=== PATIENT | male | born 1965 | race Caucasian/White ===

== ENCOUNTER 2024-02-15 11:30 | Inpatient (IN) | payer OTHER ==
[2024-02-15 12:13] VITALS: BMI 21.9
[2024-02-15] MEDS ORDERED: DICYCLOMINE HCL 10 MG CAPSULE PO PRN (12:26)
[2024-02-15] MEDS ORDERED: guaiFENesin 600 MG TABLET.ER (FP) PO PRN (12:26)
[2024-02-15] MEDS ORDERED: diazePAM 5 MG TABLET PO PRN (12:26)
[2024-02-15] MEDS ORDERED: POLYETHYLENE GLYCOL (HEALTHYLAX) 3350 17 GM PACKET PO PRN (12:26)
[2024-02-15] MEDS ORDERED: BENZOCAINE/MENTHOL (CHLORASEPTIC ) LOZENGE MM PRN (12:26)
[2024-02-15] MEDS ORDERED: BENZONATATE 200 MG CAPSULE PO PRN (12:26)
[2024-02-15] MEDS ORDERED: NALOXONE (NARCAN) HCL 4 MG/0.1 ML SPRAY NS PRN (12:26)
[2024-02-15] MEDS ORDERED: MAGNESIUM HYDROX 2400MG/30ML ORAL SUSPENSION 30 ML CUP PO PRN (12:26)
[2024-02-15] MEDS ORDERED: ACETAMINOPHEN 325 MG TABLET (FP) PO PRN (12:26)
[2024-02-15] MEDS ORDERED: IBUPROFEN 400 MG TABLET (FP) PO PRN (12:26)
[2024-02-15] MEDS ORDERED: IBUPROFEN 600 MG TABLET (FP) PO PRN (12:26)
[2024-02-15] MEDS ORDERED: LOPERAMIDE HCL 2 MG CAPSULE PO PRN (12:26)
[2024-02-15] MEDS ORDERED: hydrOXYzine PAMOATE 25 MG CAPSULE (FP) PO PRN (12:26)
[2024-02-15] MEDS ORDERED: methaDONE HCL 10 MG TABLET (FOR DETOX USE ONLY) ONE (12:51)
[2024-02-15] MEDS: PRENATAL VITAMINS W/ FOLIC ACID TABLET (FP) PO SCH (13:00)
[2024-02-15] MEDS ORDERED: ACETAMINOPHEN PO PRN (13:00)
[2024-02-15] MEDS: methaDONE HCL 10 MG TABLET (FOR DETOX USE ONLY) PO ONE (13:00)
[2024-02-15] MEDS: NICOTINE 14 MG/24 HOURS TOPICAL PATCH TD SCH (13:01)
[2024-02-15] MEDS ORDERED: IBUPROFEN 600 MG TABLET (FP) PO ONE (13:21)
[2024-02-15] MEDS: methaDONE HCL 10 MG TABLET PO ONE (13:31)
[2024-02-15] MEDS: cloNIDine HCL 0.1 MG TABLET PO SCH (13:33)
[2024-02-15] MEDS: ACAMPROSATE CALCIUM 333 MG TABLET.DR PO SCH (13:33)
[2024-02-15] MEDS: diazePAM 5 MG TABLET PO SCH (17:40)
[2024-02-15] MEDS: [UNRECOGNIZED DRUG - OTHER] PO SCH (17:41)
[2024-02-15] MEDS: POTASSIUM CLAV PO SCH (17:41)
[2024-02-15] MEDS: AMOXICILLIN PO SCH (17:41)
[2024-02-15] MEDS: THIAMINE 100 MG TABLET PO SCH (22:41)
[2024-02-15] MEDS: MELATONIN 5 MG TABLETS PO SCH (22:42)
[2024-02-16] MEDS: methaDONE HCL 10 MG TABLET PO ONE ×2 (10:36→10:39)
[2024-02-16] MEDS: FLU VACCINE (FLULAVAL) PF 45 MCG/0.5 ML SYRINGE 2024-2025 IM ONE (12:08)
[2024-02-16 12:58] LABS: BLOOD UREA NITROGEN 24.8 mg/dL (7-18); CALCIUM 9.2 mg/dL (8.5-10.1)
[2024-02-16 13:02] LABS: BILIRUBIN,TOTAL 0.2 mg/dL (0.2-1); CREATININE 0.8 mg/dL (0.55-1.3)
[2024-02-16 13:03] LABS: TOT PROT 6.2 g/dl (6.4-8.2)
[2024-02-16 13:50] LABS: HIV INTERPRETATION NEGATIVE (NEGATIVE)
[2024-02-16 14:34] LABS: HEMOGLOBIN 11.5 GM/dL (11.7-16.9); MCH 30.6 pg (25.7-33.7); MCHC 32.7 g/dl (32.0-35.9); MEAN CELL VOLUME 93.5 fl (80-96); MEAN PLT VOLUME 7.8 fl (7.5-11.1); PLATELET COUNT 272 10^3/uL (134-434); RBC 3.74 M/mm3 (4.00-5.60); RDW 13.1 % (11.9-15.9); WHITE BLOOD COUNT 8.2 K/mm3 (4.0-10.0)
[2024-02-17] MEDS ORDERED: cloNIDine HCL 0.1 MG TABLET PO PRN
[2024-02-17] MEDS: diazePAM 5 MG TABLET PO SCH (05:42)
[2024-02-17] MEDS: methaDONE 40 MG, methaDONE 10 MG PO SCH (05:43)
[2024-02-17] MEDS ORDERED: methaDONE HCL 40 MG DISPERSABLE TABLET PO SCH (06:00)
[2024-02-17] MEDS: methaDONE HCL 10 MG TABLET PO ONE (09:26)
[2024-02-17] MEDS: METHOCARBAMOL 500 MG TABLET PO PRN (22:18)
[2024-02-18] MEDS: diazePAM 5 MG TABLET PO SCH (05:26)
[2024-02-18] MEDS: MAG HYDROX/AL HYDROX/SIMETH 30 ML UNIT-DOSE CUP PO PRN (09:25)
[2024-02-18] MEDS: methaDONE HCL 40 MG DISPERSABLE TABLET PO ONE (09:28)
[2024-02-18] MEDS: ONDANSETRON *ODT* 4 MG TABLET SL PRN (10:44)
[2024-02-18] MEDS: BISMUTH SUBSALICYLATE 262 MG/15 ML BTL PO PRN (10:45)
[2024-02-18] MEDS: NALOXONE (NYS OPIOID OVERDOSE PROGRAM) 4 MG/0.1 ML SPRAY NS SCH (12:02)
[2024-02-18 13:20] VITALS: BP 139/80; PULSE 89; RESP 17; TEMP 97.7
[2024-02-19] MEDS ORDERED: diazePAM 5 MG TABLET PO ONE (06:00)
[2024-02-19] MEDS ORDERED: methaDONE 40 MG, methaDONE 10 MG PO ONE (10:00)
[2024-02-20] MEDS ORDERED: methaDONE 40 MG, methaDONE 20 MG PO ONE (10:00)
== END 2024-02-18 12:35 | disposition home or self-care (01) | DRG 773 ==
LOC: YASAS 11:30 → Y6N 12:33
PROVIDERS: ADMIT Allergy & Immunology; ATTEND Surgery
PROC: HZ2ZZZZ Detoxification Services for Substance Abuse Treatment (ICD-10-PCS; principal; 2024-02-15)
DX: F11.23 Opioid dependence with withdrawal (principal); F10.230 Alcohol dependence with withdrawal, uncomplicated; F17.210 Nicotine dependence, cigarettes, uncomplicated; F31.9 Bipolar disorder, unspecified; F19.24 Other psychoactive substance dependence with psychoactive substance-induced mood disorder
CPT/HCPCS: 36415; 80053; 80305; 80307; 85027; 86780; 86803; 87389; 90656; 93005; 93010; G0008; Q0162

== ENCOUNTER 2024-04-22 11:32 | Inpatient (IN) | payer OTHER ==
[2024-04-22 12:04] VITALS: BMI 23.1
[2024-04-22] MEDS ORDERED: BISACODYL 5 MG TABLET.DR (FP) PO PRN (12:25)
[2024-04-22] MEDS ORDERED: DOCUSATE SODIUM 100 MG CAPSULE (FP) PO PRN (12:25)
[2024-04-22] MEDS ORDERED: IBUPROFEN 400 MG TABLET (FP) PO PRN (12:25)
[2024-04-22] MEDS ORDERED: BENZONATATE 200 MG CAPSULE PO PRN (12:25)
[2024-04-22] MEDS ORDERED: NICOTINE POLACRILEX 2 MG GUM BUC PRN (12:25)
[2024-04-22] MEDS ORDERED: LOPERAMIDE HCL 2 MG CAPSULE PO PRN (12:25)
[2024-04-22] MEDS ORDERED: NALOXONE (NARCAN) HCL 4 MG/0.1 ML SPRAY NS PRN (12:25)
[2024-04-22] MEDS ORDERED: NICOTINE POLACRILEX 2 MG LOZENGE BC PRN (12:25)
[2024-04-22] MEDS ORDERED: MAG HYDROX/AL HYDROX/SIMETH 30 ML UNIT-DOSE CUP PO PRN (12:25)
[2024-04-22] MEDS ORDERED: MAGNESIUM HYDROX 2400MG/30ML ORAL SUSPENSION 30 ML CUP PO PRN (12:25)
[2024-04-22] MEDS: MELATONIN 5 MG TABLETS PO SCH (21:17)
[2024-04-22] MEDS: THIAMINE 100 MG TABLET PO SCH (21:17)
[2024-04-23] MEDS ORDERED: methaDONE HCL 10 MG TABLET PO SCH (09:15)
[2024-04-23] MEDS: PRENATAL VITAMINS W/ FOLIC ACID TABLET (FP) PO SCH (09:59)
[2024-04-23] MEDS: methaDONE 40 MG, methaDONE 10 MG PO SCH (09:59)
[2024-04-23 11:12] LABS: POTASSIUM 4.2 mmol/L (3.5-5.1)
[2024-04-23 11:17] LABS: EPI CELLS 3 /uL (0-25.1); HYALINE CASTS 0 /uL (0-3.1); PH,URINE 5.5 (5.0-8.0); URINE APPEARANCE CLEAR; URINE BACTERIA 107 /uL (0-1359); URINE BILIRUBIN NEGATIVE (NEGATIVE); URINE COLOR YELLOW; URINE GLUCOSE (UA) NEGATIVE (NEGATIVE); URINE KETONE NEGATIVE (NEGATIVE); URINE LEUK ESTERASE NEGATIVE (NEGATIVE); URINE NITRITE NEGATIVE (NEGATIVE); URINE PROTEIN NEGATIVE (NEGATIVE); URINE RBC 5 /uL (0-23.9); URINE UROBILINOGEN 0.2 mg/dL (0.2-1.0)
[2024-04-23 11:17] LABS: HEMATOCRIT 35.4 % (35.4-49); HEMOGLOBIN 11.4 GM/dL (11.7-16.9); MCH 29.1 pg (25.7-33.7); MCHC 32.2 g/dl (32.0-35.9); MEAN CELL VOLUME 90.3 fl (80-96); MEAN PLT VOLUME 7.1 fl (7.5-11.1); PLATELET COUNT 301 10^3/uL (134-434); RBC 3.92 M/mm3 (4.00-5.60); RDW 12.6 % (11.9-15.9); WHITE BLOOD COUNT 11.1 K/mm3 (4.0-10.0)
[2024-04-23 11:20] LABS: ALBUMIN 2.6 g/dl (3.4-5.0); BLOOD UREA NITROGEN 15.8 mg/dL (7-18); CALCIUM 8.7 mg/dL (8.5-10.1)
[2024-04-23 11:22] LABS: BILIRUBIN,TOTAL 0.2 mg/dL (0.2-1); TOT PROT 5.8 g/dl (6.4-8.2)
[2024-04-23 11:24] LABS: CREATININE 0.9 mg/dL (0.55-1.3)
[2024-04-23 11:55] LABS: URINE WBC 398.3 /uL (0-25.8)
[2024-04-23] MEDS: GABAPENTIN 300 MG CAPSULE PO SCH (12:23)
[2024-04-23] MEDS: ARIPiprazole 5 MG TABLET PO SCH (12:23)
[2024-04-23] MEDS: ACETAMINOPHEN 325 MG TABLET (FP) PO PRN (18:02)
[2024-04-23] MEDS: MIRTAZAPINE 15 MG TABLET (FP) PO SCH (21:22)
[2024-04-24] MEDS: guaiFENesin 600 MG TABLET.ER (FP) PO PRN (15:40)
[2024-04-24] MEDS: IBUPROFEN 600 MG TABLET (FP) PO PRN (15:40)
[2024-04-25] MEDS: BACLOFEN 10 MG TABLET (FP) PO SCH (11:57)
[2024-04-25] MEDS: NICOTINE 14 MG/24 HOURS TOPICAL PATCH TD SCH (11:58)
[2024-04-25] MEDS: AMOX TR/POT CLAV 500MG/125MG TABLETS (FP) PO SCH (17:47)
[2024-04-25] MEDS: BENZOCAINE 20 % GEL TUBE MM PRN (21:27)
[2024-04-26] MEDS: BENZOCAINE/MENTHOL (CHLORASEPTIC ) LOZENGE MM PRN (01:32)
[2024-04-26] MEDS: P-EPHED 60MG/TRIPROLIDI 2.5MG TABLET PO PRN (01:32)
[2024-04-28] MEDS: MIRTAZAPINE 30 MG TABLET PO SCH (21:23)
[2024-04-29] MEDS: ARIPiprazole 10 MG TABLET PO SCH (09:33)
[2024-04-29 12:13] LABS: HIV INTERPRETATION NEGATIVE (NEGATIVE)
[2024-05-01] MEDS: POLYETHYLENE GLYCOL (HEALTHYLAX) 3350 17 GM PACKET PO PRN (16:56)
[2024-05-05 06:41] VITALS: TEMP 97.6
[2024-05-06 06:49] VITALS: BP 138/75; PULSE 89; RESP 18
== END 2024-05-06 10:37 | disposition home or self-care (01) | DRG 772 ==
LOC: YASAS 11:32 → Y5N 13:02
PROVIDERS: ADMIT Psychiatry & Neurology Pain Medicine; ATTEND Psychiatry & Neurology Pain Medicine
PROC: HZ42ZZZ Group Counseling for Substance Abuse Treatment, Cognitive-Behavioral (ICD-10-PCS; principal; 2024-04-22)
DX: F11.20 Opioid dependence, uncomplicated (principal); F14.20 Cocaine dependence, uncomplicated; F17.210 Nicotine dependence, cigarettes, uncomplicated; F31.9 Bipolar disorder, unspecified; F19.24 Other psychoactive substance dependence with psychoactive substance-induced mood disorder; F41.9 Anxiety disorder, unspecified
CPT/HCPCS: 36415; 80053; 80305; 80307; 81003; 85027; 86780; 86803; 87389; 87491; 87591; 87661; 87811; J0475